=== PATIENT | male | born 1960 | race Caucasian/White ===

== ENCOUNTER 2021-05-01 09:46 | Day surgery (SDC) | payer SELFPAY | END 2021-05-01 11:56 | disposition home or self-care (01) | LOC: CSHSDC 09:46 | PROVIDERS: ATTEND Family Medicine | DX: Z23 Encounter for immunization (principal); U07.1 COVID-19 | CPT/HCPCS: 96365; J3490; M0243; Q0244 ==

== ENCOUNTER 2021-11-19 10:00 | Outpatient (CLI) | payer OTHER ==
[2021-11-19] MEDS ORDERED: Iopamidol 370 76% 100 ML VIAL ONE (15:12)
== END 2021-11-19 10:01 | disposition home or self-care (01) ==
LOC: CSHCT 10:00
PROVIDERS: ATTEND Family Medicine
DX: R63.4 Abnormal weight loss (principal); Z87.891 Personal history of nicotine dependence; R05.9 Cough, unspecified; I25.10 Atherosclerotic heart disease of native coronary artery without angina pectoris; I70.0 Atherosclerosis of aorta
CPT/HCPCS: 71260; 82565; Q9967